=== PATIENT | female | born 1935 | race Two or more races ===

== ENCOUNTER 2022-01-14 13:10 | Emergency (ER) | payer OTHER ==
[~2022-01-14] VITALS: Ht 165.1 cm; Wt 86.2 kg
[2022-01-14] MEDS ORDERED: LIPITOR40 M1 PO (13:35)
[2022-01-14] MEDS ORDERED: ULTRAM50 MG PO (14:22)
== END 2022-01-14 16:27 | disposition home or self-care (01) ==
LOC: ER 13:10
DX: S40.011A Contusion of right shoulder, initial encounter (principal); W18.30XA Fall on same level, unspecified, initial encounter; Y93.F1 Activity, caregiving, bathing; Y92.012 Bathroom of single-family (private) house as the place of occurrence of the external cause